=== PATIENT | male | born 1985 | race Caucasian/White ===

== ENCOUNTER 2020-05-07 12:32 | Emergency (ER) | payer OTHER ==
[~2020-05-07] VITALS: Ht 172.7 cm; Wt 86.2 kg
[~2020-05-07 12:32] MED LIST: NO REPORTABLE MEDS
[2020-05-07 12:38] VITALS: BP 118/73
--- NOTE | 2020-05-07 12:45 | NUR ---
PT STATED THAT HE WAS REFERRED TO [facility] BY THE URGENT CARE FOR A CT SCAN OF THE HEAD. PT STATES THAT HE FELL WHILE RIDING A SCOOTER AND FELL FACE DOWN HITTING THE L SIDE OF HIS FACE MOSTLY. VS CHECKED.
[2020-05-07] MEDS ORDERED: HYDROCODONE/APAP 5/325MG TABLET ONE (12:57)
[2020-05-07] MEDS ORDERED: HYDROCODONE/APAP 5/325MG TABLET PO ONE (13:00)
== END 2020-05-07 14:19 | disposition home or self-care (01) ==
LOC: ER 12:41
DX: S06.0X0A Concussion without loss of consciousness, initial encounter (principal); S16.1XXA Strain of muscle, fascia and tendon at neck level, initial encounter; S05.12XA Contusion of eyeball and orbital tissues, left eye, initial encounter; R51.9 Headache, unspecified; W05.1XXA Fall from non-moving nonmotorized scooter, initial encounter; Y93.I9 Activity, other involving external motion; Y92.89 Other specified places as the place of occurrence of the external cause; Y99.8 Other external cause status
CPT/HCPCS: 70450-TC; 70486-TC; 72125-TC

== ENCOUNTER 2021-07-19 15:36 | Emergency (ER) | payer SELFPAY ==
[~2021-07-19] VITALS: Ht 172.7 cm; Wt 81.6 kg
--- NOTE | 2021-07-19 16:01 | NUR ---
BIBS FOR C/O RLQ PAIN 11/23 X 2 DAYS. ABDOMEN SOFT AND NON-DISTENDED. RESPIRATION REGULAR AND UNLABORED. WILL CONTINUE TO MONITOR THE PATIENT.
[2021-07-19] MEDS ORDERED: IV NS 0.9% 1,000 ML BAG IV ONE (16:30)
[2021-07-19] MEDS ORDERED: KETOROLAC TROMETHAMINE INJ 30 MG/ML VIAL IV ONE (16:30)
[2021-07-19 17:08] LABS: BASOPHILS % (AUTO) 0.4 % (0.0-2.0); EOSINOPHILS % (AUTO) 0.3 % (0.0-6.0); HEMATOCRIT 40 % (39-51); HEMOGLOBIN 13.1 g/dL (13.5-17.5); LYMPHOCYTES # (AUTO) 1.3 K/uL (0.8-4.8); LYMPHOCYTES % (AUTO) 21.8 % (20.0-44.0); MEAN CORPUSCULAR HGB CONC 33 g/dl (31.0-36.0); MEAN CORPUSCULAR VOLUME 91 fL (80-96); MONOCYTES # (AUTO) 0.8 K/uL (0.1-1.30); MONOCYTES % (AUTO) 12.5 % (2.0-12.0); PLATELET COUNT (AUTO) 217 K/uL (150-450); RED BLOOD CELL COUNT(AUTO) 4.39 MIL/uL (4.5-6.0); WHITE BLOOD COUNT (AUTO) 6.1 K/uL (4.3-11.0)
[2021-07-19] MEDS ORDERED: KETOROLAC TROMETHAMINE INJ 30 MG/ML VIAL ONE (17:11)
[2021-07-19 17:49] LABS: CREATININE 1.2 mg/dL (0.6-1.3)
[2021-07-19 17:55] LABS: ALBUMIN 4.4 g/dL (3.4-5.0); BILIRUBIN,DIRECT 0.1 mg/dL (0.0-0.2); BILIRUBIN,TOTAL 0.3 mg/dL (0.2-1.0); TOTAL PROTEIN, SERUM 7.8 g/dL (6.4-8.2)
[2021-07-19] MEDS ORDERED: ACET-2605 PO (19:00)
[2021-07-19] MEDS ORDERED: CIPROFLOXACIN HCL 250 MG TABLET PO ONE (19:00)
[2021-07-19] MEDS ORDERED: CIPR-262 PO (19:00)
[2021-07-19] MEDS ORDERED: CIPROFLOXACIN HCL 500 MG TABLET ONE (19:15)
--- NOTE | 2021-07-19 19:26 | NUR ---
IV removed. Catheter intact and site benign. Pressure and 4x4 applied to site. No bleeding noted.Patient discharged to home in stable condition. Written and verbal after care instructions given. Patient verbalizes understanding of instruction.
[2021-07-20 01:01] VITALS: BP 130/71
== END 2021-07-19 19:30 | disposition home or self-care (01) ==
LOC: ER 15:41
DX: K52.9 Noninfective gastroenteritis and colitis, unspecified (principal)
CPT/HCPCS: 36415; 74176; 80048; 80076; 83690; 85025; 96361; 96374; 99284; J1885; J7030

== ENCOUNTER 2021-12-30 11:29 | Emergency (ER) | payer MEDICAID, OTHER ==
[~2021-12-30] VITALS: Ht 170.2 cm; Wt 83.0 kg
[~2021-12-30 11:29] MED LIST changes: +ACET-2605 PO; +CIPR-262 PO
--- NOTE | 2021-12-30 12:06 | NUR ---
TO ER BED 1, C/O RIGHT CHEST PAIN TODAY NON RADIATING, CHANGED INTO A GOWN, CONNECTED TO MONITOR, AWAITING MD CENTENO
[2021-12-30] MEDS ORDERED: KETOROLAC TROMETHAMINE 15 MG/ML VIAL ONE (12:21)
[2021-12-30] MEDS ORDERED: KETOROLAC TROMETHAMINE INJ 30 MG/ML VIAL IV ONE (12:30)
--- NOTE | 2021-12-30 12:30 | NUR ---
SALINE LOCK ESTABLISHED, BLOOD DRAWN AND SENT TO LAB
[2021-12-30 12:41] LABS: BASOPHILS % (AUTO) 0.4 % (0.0-2.0); HEMATOCRIT 44 % (39-51); HEMOGLOBIN 14.9 g/dL (13.5-17.5); LYMPHOCYTES # (AUTO) 1.9 K/uL (0.8-4.8); LYMPHOCYTES % (AUTO) 36.4 % (20.0-44.0); MEAN CORPUSCULAR HGB CONC 34 g/dl (31.0-36.0); MEAN CORPUSCULAR VOLUME 84 fL (80-96); MONOCYTES # (AUTO) 0.2 K/uL (0.1-1.30); MONOCYTES % (AUTO) 4.5 % (2.0-12.0); NEUTROPHILS % (AUTO) 57.7 % (43.0-81.0); PLATELET COUNT (AUTO) 226 K/uL (150-450); RED BLOOD CELL COUNT(AUTO) 5.24 MIL/uL (4.5-6.0); WHITE BLOOD COUNT (AUTO) 5.2 K/uL (4.3-11.0)
--- NOTE | 2021-12-30 12:52 | NUR ---
ELOCUTION TEACHER AT BEDSIDE FOR XRAY
[2021-12-30 12:57] LABS: CALCIUM, SERUM 9.4 mg/dL (8.5-10.1); CARBON DIOXIDE 28 mmol/L (21-32); CHLORIDE 105 mmol/L (98-107); CREATININE 1.2 mg/dL (0.6-1.3); GLUCOSE 91 mg/dL (74-106); POTASSIUM 4.2 mmol/L (3.5-5.1); SODIUM SERUM 139 mmol/L (136-145); UREA NITROGEN, BLOOD 8 mg/dL (7-18)
[2021-12-30 15:57] VITALS: BP 139/70
== END 2021-12-30 15:58 | disposition home or self-care (01) ==
LOC: ER 11:32
DX: R07.89 Other chest pain (principal); Z79.899 Other long term (current) drug therapy
CPT/HCPCS: 36415; 71045; 80048; 83880; 84484 ×2; 85025; 93005 ×3; 96374; 99285; J1885